=== PATIENT | male | born 1995 | race Caucasian/White ===

== ENCOUNTER 2017-10-22 16:30 | Emergency (ER) | payer OTHER ==
[2017-10-22] MEDS ORDERED: DEXAMETHASONE 4 MG TAB PO STA (17:47)
[2017-10-22] MEDS ORDERED: KETOROLAC 30 MG/ML 1 ML VIAL IM STA (17:47)
--- NOTE | 2017-10-22 19:14 | XR ---
EXAMINATION TYPE: XR lumbar spine 2 or 3V DATE OF EXAM: 10/22/2017 CLINICAL HISTORY: Low back pain, no injury. TECHNIQUE: Frontal, lateral images of the lumbar spine are obtained. COMPARISON: None. FINDINGS: There are 5 lumbar type vertebral bodies identified. The lumbar spine shows satisfactory alignment without evidence of acute fracture or dislocation. Vertebral body heights and disk space he ights are within normal limits. The overlying soft tissue appears unremarkable. IMPRESSION: No acute fracture or dislocation is seen in the lumbar spine.
--- NOTE | 2017-10-22 20:09 | ED ---
Back Pain HPI - General Chief Complaint: Back Pain/Injury Stated Complaint: back pain Time Seen by Provider: 10/22/17 17:28 Source: patient, EMS Limitations: no limitations - History of Present Illness Initial Comments: 22 years old male has some back pain, its in the paraspinal area he does go down his proximal to the knees no bladder or bowel dysfunction. He was seen by a doctor at the urgent care he was giving some muscle relaxers and anti- inflammatorieshe said he is running out of his medications he denies any trauma he denies any previous history of back pains. No headaches no chest pain or shortness of breath no abdominal pain him a no frequency urgency dysuria no symptoms of TIA or CVA - Related Data Previous Rx's Medication Instructions Recorded Diclofenac Sodium [Voltaren] 50 mg PO BID #30 tablet. 10/22/17 HYDROcodone/APAP 5-325MG [Buchanan 5] 1 - 2 each PO Q6HR PRN #12 tab 10/22/17 predniSONE 50 mg PO DAILY #5 tablet 10/22/17 Allergies Allergy/AdvReac Type Severity Reaction Status Date / Time egg Allergy Unknown Verified 10/22/17 17:33 Review of Systems ROS Statement: Those systems with pertinent positive or pertinent negative responses have been documented in the HPI. ROS Other: All systems not noted in ROS Statement are negative. Past Medical History Past Medical History: No Reported History History of Any Multi-Drug Resistant Organisms: None Reported Past Surgical History: No Surgical Hx Reported Past Psychological History: No Psychological Hx Reported Smoking Status: Never smoker Past Alcohol Use History: None Reported Past Drug Use History: None Reported General Exam - General Exam Comments Initial Comments: General: The patient is awake and alert, in no distress, and does not appear acutely ill. Skin: Skin is warm and dry and no rashes or lesions are noted. Eye: Pupils are equal, round and reactive to light, extra-ocular movements are intact; there is normal conjunctiva bilaterally. Ears, nose, mouth and throat: There are moist mucous membranes and no oral lesions. Neck: The neck is supple, there is no tenderness or JVD. Cardiovascular: There is a regular rate and rhythm. No murmur, rub or gallop is appreciated. Respiratory: To auscultation bilateral, no wheezing no rhonchi no distress respiratory wade noticed Gastrointestinal: Soft, non-distended, non-tender abdomen without masses or organomegaly noted. There is no rebound or guarding present. Bowel sounds are unremarkable. Back: There is no tenderness to palpation in the midline. There is no obvious deformity. Him discomfort no noticed over the sacroiliac joint, straight leg raise is positive on the right side deep reflexes are within normal range Musculoskeletal: Normal ROM, no tenderness, There is no pedal edema. There is no calf tenderness or swelling. No cords were appreciated. Neurological: CN II-XII intact, Cranial nerves III through XII are intact. There are no obvious motor or sensory deficits. Coordination appears grossly intact. Speech is normal. Psychiatric: Cooperative, appropriate mood & affect, normal judgment. Limitations: no limitations Course Vital Signs 10/22/17 10/22/17 10/22/17 16:39 19:52 21:12 Temperature 98.4 F 98.4 F Pulse Rate 77 81 71 Respiratory 17 16 18 Rate Blood Pressure 169/81 140/107 158/76 O2 Sat by Pulse 96 98 98 Oximetry Jacqueline is reassessed at term 8 PM, he said he is unable to bear weight on his right leg, mom said he is in excruciating pain in his he is crying with the pain considering that we'll go ahead and do a CT of the lumbar spine he be given morphine for milligram intramuscular along with Zofran and a gram of Tylenol CT lumbar spine report is reviewed, he has a grade 1 anterolisthesis of L5 on S1 , he be gone home on now prednisone 50 mg 1 tablet daily for next 5 days were also sent him on Some Buchanan 5/325 tablets every 6 #12 (Start talking form was filled Disposition Clinical Impression: Back pain, Anterolisthesis Disposition: HOME SELF-CARE Condition: Good Instructions: Acute Low Back Pain (ED) Prescriptions: Diclofenac Sodium [Voltaren] 50 mg PO BID #30 tablet. HYDROcodone/APAP 5-325MG [Buchanan 5] 1 - 2 each PO Q6HR PRN #12 tab PRN Reason: Pain predniSONE 50 mg PO DAILY #5 tablet Is patient prescribed a controlled substance at d/c from ED?: Yes If prescribed controlled substance>3 days was MAPS reviewed?: No (He is not using any other opioids at this time) Referrals: Tesha Mccloud MD [Primary Care Provider] - 1-2 days
[2017-10-22] MEDS ORDERED: MORPHINE SULFATE 4 MG/ML SYRINGE IM STA (20:18)
[2017-10-22] MEDS ORDERED: ONDANSETRON ODT 4 MG TAB PO STA (20:18)
[2017-10-22] MEDS ORDERED: ACETAMINOPHEN TAB 500 MG TAB PO STA (20:20)
[2017-10-22 21:13] VITALS: BP 158/76; PULSE 71; RESP 18
--- NOTE | 2017-10-22 21:21 | CT ---
EXAMINATION TYPE: CT lumbar spine wo con DATE OF EXAM: 10/22/2017 9:04 PM COMPARISON: Lumbar spine radiographs earlier the same day HISTORY: Lower back pain CT DLP: 1136.9 mGycm Automated exposure control for dose reduction was used. Unenhanced CT of the lumbar spine was performed. Bone and soft tissue window settings are submitted as well as coronal and sagittal reconstructions. No acute vertebral body fracture. Limited evaluation of additional included pelvic structures are wit hin normal limits. Paraspinal muscles are within normal limits. L1-L2: Normal disc space height. No disc herniation, protrusion or central stenosis. No facet joint arthropathy. No evidence for foraminal encroachment. L2-L3: Normal disc space height. No disc herniation, protrusion or central stenosis. No facet joint arthropathy. No evidence for foraminal encroachment. L3-L4: Normal disc space height. No disc herniation, protrusion or central stenosis. No facet joint arthropathy. No evidence for foraminal encroachment. L4-L5: Normal disc space height. No disc herniation, protrusion or central stenosis. No facet joint arthropathy. No evidence for foraminal encroachment. L5-S1: Normal disc space height. No disc herniation, protrusion or central stenosis. No facet joint arthropathy. No evidence for foraminal encroachment. L5 bilateral pars defects with associated grade 1 anterolisthesis of L5 on S1. IMPRESSION: 1. L5 bilateral pars defects with grade 1 anterolisthesis of L5 on S1. 2. No significant spinal canal or neural foraminal narrowing. No obvious disc herniation or extradura l defects.
[2017-10-22 21:50] VITALS: TEMP 98.2
== END 2017-10-22 21:49 | disposition home or self-care (01) ==
LOC: EC 16:30
DX: M43.17 Spondylolisthesis, lumbosacral region (principal); Z91.012 Allergy to eggs
CPT/HCPCS: 72100; 72131; 99284; 96372 ×2; J8540; J2270; J1885